=== PATIENT | female | born 1975 | race Caucasian/White ===

== ENCOUNTER 2023-03-01 17:15 | Emergency (ER) | payer OTHER ==
[~2023-03-01] VITALS: Ht 172.7 cm; Wt 86.4 kg
[~2023-03-01 17:15] MED LIST: CELE-193 PO; CEPH250C92 PO; CIP500T PO; HYDR-2514 PO; TERB250T89 PO
[2023-03-01 18:36] VITALS: BP 161/103
== END 2023-03-01 19:22 | disposition home or self-care (01) ==
LOC: ER 17:16
DX: S66.912A Strain of unspecified muscle, fascia and tendon at wrist and hand level, left hand, initial encounter (principal); J45.909 Unspecified asthma, uncomplicated; Z88.6 Allergy status to analgesic agent; Z79.899 Other long term (current) drug therapy; Z79.1 Long term (current) use of non-steroidal anti-inflammatories (NSAID); Z90.49 Acquired absence of other specified parts of digestive tract; X58.XXXA Exposure to other specified factors, initial encounter; Y93.89 Activity, other specified; Y92.89 Other specified places as the place of occurrence of the external cause; Y99.8 Other external cause status
CPT/HCPCS: 73110; 99283